=== PATIENT | female | born 1995 | race Two or more races ===

== ENCOUNTER 2024-06-09 08:45 | Emergency (ER) | payer MEDICAID, SELFPAY ==
[2024-06-09] VITALS (7 sets, daily range): BP systolic 101–110; BP diastolic 67–74; PULSE 79–117; RESP 16–98; TEMP 36.9–38.7; O2SAT 95–99; BMI 27.8
--- NOTE | 2024-06-09 09:06 | XR_ITS ---
Examination: CT abdomen and pelvis without contrast. Coronal 3-D reconstructions. Sagittal 2-D reconstructions. Date and time of exam:June 09, 2024 at 1032 hours INDICATIONS: Generalized abdominal pain nausea vomiting diarrhea beginning today CTDI: vol (mGy): 6.89 DLP: (mGycm): 336 Technique: Axial images of the abdomen have been obtained, 3 mm slice thickness Intravenous contrast material has not been administered. Low dose protocols were performed. One or more of the following dose reduction techniques were used; automated exposure control, adjustment of the mA and/or KV according to patient size, use of iterative reconstruction technique. Findings: Hepatomegaly 19 cm Diffuse fatty infiltration throughout the liver Mildly distended gallbladder no gallstones gallbladder wall does not appear thickened Spleen is not enlarged No pancreatic mass or peripancreatic edema Normal adrenal glands No renal or ureteral calculi, no hydronephrosis 19 mm umbilical hernia Aorta normal size Appendix is fluid-filled but without periappendiceal inflammatory change No pericecal inflammatory change No bowel obstruction Anteverted uterus Urinary bladder intact L5-S1 5 mm central lumbar disc bulge contiguous with the S1 nerve roots, axial image 123 IMPRESSION: Hepatomegaly, 19 cm Mildly distended gallbladder, no gallstones, consider gallbladder sonography follow-up No renal or ureteral calculi, no hydronephrosis Appendix is fluid-filled but without periappendiceal inflammatory change, no pericecal inflammatory change No bowel obstruction or diverticulitis L5-S1 5 mm central lumbar disc bulge
--- NOTE | 2024-06-09 09:06 | PD.EDRME ---
Rapid Medical Screening Exam RME Arrival date/time: 06/09/24 08:45 29-year-old female presents to the emergency department complaints of abdominal pain nausea and vomiting Chief Complaint: Abdominal Pain Time Seen by Provider: 06/09/24 08:55 Vital signs: Vital Signs Temperature 99.0 F 06/09/24 08:53 Pulse Rate 117 H 06/09/24 08:53 Respiratory Rate 19 06/09/24 08:53 Blood Pressure 108/74 06/09/24 08:53 Pulse Oximetry (%) 95 06/09/24 08:53 Oxygen Delivery Method Room Air 06/09/24 08:53
[2024-06-09 09:34] LABS: Collection Type, Urine Clean Catch
[2024-06-09 09:48] LABS: HCG Qualitative,Urine Negative
[2024-06-09 09:52] LABS: Basophils % (Auto) 0 % (0-2.5); Eosinophils % (Auto) 0 % (0-10); Hematocrit 38.1 % (36.0-46.0); Immature Granulocytes % (Auto) 1 % (0-0); Immature Granulocytes Auto 0.12 Thou/mm3 (0.00-0.00); Lymphocytes # (Auto) 1.1 Thou/mm3 (1.0-4.8); Lymphocytes % (Auto) 5 % (10-50); Mean Corpuscular HGB Conc 34.1 g/dl (31.0-37.0); Mean Corpuscular Volume 91 fL (80-100); Monocytes # (Auto) 0.6 Thou/mm3 (0.0-0.8); Monocytes % (Auto) 3 % (0-12); Neutrophils # (Auto) 20.4 Thou/mm3 (1.8-7.7); Neutrophils % (Auto) 92 % (37-80); Nucleated Red Blood Cell % 0 /100 WBC (0); Platelet Count 302 Thou/mm3 (140-440); RDW Standard Deviation 42.7 fL (36.4-46.3); Red Blood Count 4.19 Miln/mm3 (4.00-5.20); White Blood Count 22.3 Thou/mm3 (3.6-11.0)
[2024-06-09 10:02] LABS: Amphetamine/Methamp Scrn,U Negative (Negative); Barbiturate Screen,Urine Negative (Negative); Benzodiazepines Screen,Urine Negative (Negative); Benzoylecgonine Screen, Ur Negative (Negative); Fentanyl Screen,Urine Negative (Negative); Opiate Screen,Urine Negative (Negative); THC Screen,Urine Positive (Negative)
[2024-06-09 10:12] LABS: Bilirubin,Urine Negative (Negative); Blood,Urine Trace (Negative); Clarity,Urine Turbid (Clear/Hazy); Color,Urine Yellow (Lt Yel-Yel); Glucose, Urine Trace (Negative); Ketones,Urine Negative (Negative); Leukocyte Esterase,Urine Positive (Negative); Nitrite,Urine Negative (Negative); Protein,Urine 1+ (Neg - Trace); RBC,Urine 3 /hpf (0-3); Specific Gravity,Urine 1.026 (1.001-1.035); Squamous Epithelial Cell,Urine 4 /hpf (0-5); Urobilinogen,Urine Negative mg/dL (0.0-1.0); WBC,Urine 56 /hpf (0-5)
[2024-06-09 10:13] LABS: Culture Indicated,Urine Yes
[2024-06-09 10:16] LABS: Alanine Aminotransferase 23 U/L (10-49); Albumin, Serum 5.1 gm/dL (3.5-5.0); Albumin/Globulin Ratio 1.7 (1.2-2.2); Alkaline Phosphatase 67 U/L (46-116); Anion Gap 7 (7-16); Aspartate Amino Transferase 13 U/L (0-34); BUN/Creatinine Ratio 12 Ratio (12-20); Bilirubin,Total 1.6 mg/dL (0.3-1.2); Blood Urea Nitrogen 7 mg/dL (9-23); Calcium 10.1 mg/dL (8.3-10.6); Calcium (Corrected) 10.1 mg/dL (8.5-10.1); Carbon Dioxide 25.8 mMol/L (20.0-31.0); Chloride 102 mMol/L (98-107); Creatinine (Component) 0.6 mg/dL (0.6-1.3); Estimated Creatinine Clearance 112.3 mL/min (>60); Glucose 120 mg/dL (74-106); Lipase 27 U/L (12-53); Osmolality,Calculated 269 (275-295); Potassium 3.5 mMol/L (3.4-5.1); Sodium 135 mMol/L (136-145); Total Protein 8.1 gm/dL (5.7-8.2); eGFR > 60 See Note
[2024-06-09] MEDS: METOCLOPRAMIDE INJ 5 MG/ML VIAL 2 ML 10 MG IM (10:47)
--- NOTE | 2024-06-09 12:43 | XR_ITS ---
Examination: Abdomen sonogram, Limited Date and time of exam: June 09, 2024 1355 hrs. Indications: Upper abdominal pain and nausea beginning 2 days ago Technique: Real time grayscale sonographic images upright abdomen Findings: Normal gallbladder Normal common bile duct 0.3 cm Pancreatic head 2.4 cm Liver 18 cm no liver lesions Normal hepatopedal portal venous flow Patent IVC Impression: Normal gallbladder Mild hepatomegaly
--- NOTE | 2024-06-09 12:45 | EKG_ITS ---
[facility] Test Date: 2024-06-09 Pat Name: RM BERNAL Department: Room: - Gender: Female [employer] Director: : 1995 Requested By: Jayesh Amos Order Number: [id number] Reading MD: Jayesh Amos Measurements Intervals [place] Rate: 103 P: 43 CA: 166 QRS: 39 QRSD: 81 T: 19 QT: 343 QTc: 451 Interpretive Statements SINUS TACHYCARDIA POSSIBLE LEFT ATRIAL ENLARGEMENT [-0.1mV P WAVE IN V1/V2] NONSPECIFIC T-WAVE ABNORMALITY ABNORMAL RHYTHM ECG No previous ECG available for comparison /[id number]/[email or web address]/[id number].pdf
--- NOTE | 2024-06-09 12:46 | XR_ITS ---
Examination: AP chest single view Technique: AP portable sitting chest single view Exam date and time: June 09, 2024 1252 hrs. Indications: Sepsis protocol today. Findings: Normal heart size Lungs are clear. The osseous structures are intact Impression: No active disease
--- NOTE | 2024-06-09 12:49 | EDNOTE_ITS ---
ED General RME/HPI General Chief complaint: Abdominal Pain Stated complaint: abd. pain with vomiting since last night Time Seen by Provider: 06/09/24 08:55 Arrival date/time: 06/09/24 08:45 CC: Nausea vomiting abdominal pain HPI ongoing since last night no prior history of similar events denies any painful urination states her pain is quite tender throughout the lower abdomen. Last episode of vomiting and diarrhea this morning, localized abdominal pain is an 8 on a 10 scale radiates throughout the entire abdomen patient states when she sits upright it radiates up into the chest. Currently the pain is a 6 to an 8 on a 10 scale. Patient is warm to touch. RME / HPI RME / HPI narrative: 06/09/24 08:45 29-year-old female presents to the emergency department complaints of abdominal pain nausea and vomiting Related Data Home Medications ?Medication ?Instructions ?Recorded ?Confirmed vitamins-iron fumarate 27 1 tab PO QDAY 10/20/19 10/20/19 mg iron-folic acid 0.8 mg tablet ( Vitamin) Previous Rx's ?Medication ?Instructions ?Recorded ferrous sulfate 325 mg (65 mg 325 mg PO BID #60 tabs 10/22/19 iron) tablet,delayed release ciprofloxacin HCl 500 mg tablet 500 mg PO BID #14 tabs 06/09/24 (Cipro) meloxicam 7.5 mg tablet 7.5 mg PO QDAY #10 tabs 06/09/24 Allergies Allergy/AdvReac Type Severity Reaction Status Date / Time No Known Allergies Allergy Verified 06/09/24 08:48 Review of Systems Review of Systems Narrative Review of Systems: GEN: No fever, no chills, no weight loss EYES: No discharge, no visual changes, no pain HEENT: No ear pain, no congestion, no sore throat PULM: No shortness of breath, no cough, no congestion CV: No chest pain, no dyspnea on exertion, no palpitations GI: + nausea, + vomiting, + diarrhea, + pain, no constipation : No frequency, no urgency, no dysuria MUSC/SKEL: No joint pain, no back pain SKIN: No rash PSYCH: No hallucinations, no depression HEME/LYMPH: No easy bleeding or bruising tendencies NEURO: No weakness, no headache ED Exam Narrative Physical exam: [General: In moderate discomfort but not in any acute distress Head normocephalic HEENT: Within acceptable limits Neck is supple nontender Chest equal chest rise nontender to palpation Respiratory: Clear to auscultation no wheezes crackles or rubs CV: Rate rhythm is regular no murmurs rubs or clicks Abdomen diffusely tender in the right upper or right lower quadrants of the abdomen with reflexive guarding no rebound tenderness there is mild pain in the left lower quadrant with palpation. Back: No CVA tenderness no spinous process tenderness from cervical spine thoracic and lumbar spine Skin: Intact no petechiae rash induration ulceration or crepitus Extremities: Moving all extremity against resistance cap refill less than 2 seconds neurosensory intact Neuro: Awake alert oriented x3 Glascow coma 15 no focal deficits] Course Course Course Narrative: Vital signs were updated at 1251 at which time the patient was noted to have a temperature greater than 101 sepsis protocol was initiated. Quality Measures none Orders Category Date Time Status Bedside COVID-19 Antigen Test NOW Care 06/09/24 12:47 Active Bedside Influenza A&B Antigen Test NOW Care 06/09/24 12:47 Completed Business Services Associate STAT Care 06/09/24 12:45 Active Continuous Pulse Oximetry STAT Care 06/09/24 12:45 Completed EKG (ED ONLY) *Do not use* NOW Care 06/09/24 12:45 Completed Insert IV NOW Care 06/09/24 12:45 Active NPO STAT Care 06/09/24 12:45 Active Saline [Insert IV] NOW Care 06/09/24 12:47 Active Strict Intake and Output Routine Care 06/09/24 12:[address] abdomen pelvis wo con Stat Exams 06/09/24 09:06 Completed EKG (ED Only) Stat Exams 06/09/24 12:45 Draft US gall bladder Stat Exams 06/09/24 12:43 Completed XR chest 1V Stat Exams 06/09/24 12:46 Completed B-Type Natriuretic Peptide Stat Lab 06/09/24 13:14 Completed Blood Culture (Lab) Stat Lab 06/09/24 13:09 Received CBC Stat Lab 06/09/24 09:29 Completed CBC Stat Lab 06/09/24 13:14 Completed Comprehensive Metabolic Panel Stat Lab 06/09/24 09:29 Completed Drug Screen,Urine Stat Lab 06/09/24 09:20 Completed HCG Qualitative,Urine Stat Lab 06/09/24 09:20 Completed LDH (Lactate Dehydrogenase) Stat Lab 06/09/24 13:14 Completed Lactate (Lactic Acid) Stat Lab 06/09/24 13:14 Completed Lipase Stat Lab 06/09/24 09:29 Completed Magnesium Stat Lab 06/09/24 13:14 Completed Partial Thromboplastin Time Stat Lab 06/09/24 13:14 Completed Phosphorous Stat Lab 06/09/24 13:14 Completed Procalcitonin Stat Lab 06/09/24 13:14 Completed Prothrombin Time with INR Stat Lab 06/09/24 13:14 Completed Troponin I Stat Lab 06/09/24 13:14 Completed UA, C/S IF [Urinalysis, C/S if Indicated] Stat Lab 06/09/24 09:20 Completed Urinalysis Stat Lab 06/09/24 12:45 Ordered Urine Culture Stat Lab 06/09/24 09:20 Received Acetaminophen Tab [Tylenol Tab] Med 06/09/24 12:46 Discontinued 650 mg PO X1 ONE Metoclopramide Inj [Reglan Inj] Med 06/09/24 09:06 Discontinued 10 mg IM X1 ONE Morphine Inj Med 06/09/24 13:35 Discontinued 4 mg IVP X1 ONE Ondansetron Inj [Zofran Inj] Med 06/09/24 13:35 Discontinued 4 mg IV X1 ONE Sodium Chloride 0.9% 1000 ml [Ns] 1,000 ml Med 06/09/24 12:47 Discontinued IV 999 mls/hr Oxygen Delivery NOW RT 06/09/24 12:45 Active Vital Signs Vital signs: Vital Signs Temperature 99.0 F 06/09/24 08:53 Pulse Rate 117 H 06/09/24 08:53 Respiratory Rate 19 06/09/24 08:53 Blood Pressure 108/74 06/09/24 08:53 Pulse Oximetry (%) 95 06/09/24 08:53 Oxygen Delivery Method Room Air 06/09/24 08:53 [facility] Patient data External records reviewed:: [facility] previous records Clinical information provided by:: patient Social determinants that could affect healthcare access:: none Patient has the following chronic illnesses:: None How is presenting disease/condition affected by chronic disease/condition?: u neffected by Evaluation data The following diagnostics were reviewed and interpreted by me:: lab results, radiology exam(s) and EKG tracing(s) Lab and/or radiology exams considered but not ordered:: CBC shows leukocytosis 22,000 no bandemia no anemia thrombocytopenia CMP shows a sodium of 135 potassium 3.5 chloride of 102 CO2 of 25.8 BUN of 7 creatinine 0.6 glucose of 120 no transaminitis but a T. bili is elevated at 1.6. Urine leukocyte esterase positive WBCs at 56 but no bacteria UDS is negative. CT is read by radiology shows the patient has an enlarged gallbladder, and enlarged appendix but is not calling them directly cholecystitis or appendicitis. No other acute finding requires emergent or immediate intervention. Interpretation Summary: Patient has no acute finding requires emergent or immediate intervention, patient was seen by Dr. Amaya who feels there is not an appendicitis nature. Patient be discharged home. Medications Medications considered but not ordered:: None Medication administrations:: Medication Administration History Discontinued Medications Acetaminophen (Acetaminophen 325 Mg Tablet) 650 mg PO X1 ONE Stop: 06/09/24 12:47 Last Admin: 06/09/24 13:24 Dose: 650 mg Documented By: MILIND Sodium Chloride (Ns) 1,000 mls @ 999 mls/hr IV .Q1H1M ONE Stop: 06/09/24 13:47 Last Infusion: 06/09/24 15:04 Dose: Infused Documented By: Admin: 06/09/24 13:24 Dose: 999 mls/hr Documented By: MILIND Metoclopramide HCl (Metoclopramide Inj 5 Mg/Ml Vial 2 Ml) 10 mg IM X1 ONE; Protocol Stop: 06/09/24 09:07 Last Admin: 06/09/24 10:47 Dose: 10 mg Documented By: GUILLE Morphine Sulfate (Morphine Sulf Inj 10 Mg/Ml Vial) 4 mg IVP X1 ONE Stop: 06/09/24 13:36 Last Admin: 06/09/24 13:55 Dose: 4 mg Documented By: MILIND Ondansetron HCl (Ondansetron Inj 2 Mg/Ml Inj 2 Ml) 4 mg IV X1 ONE; Protocol Stop: 06/09/24 13:36 Last Admin: 06/09/24 13:57 Dose: 4 mg Documented By: MILIND None Consultations Consultation(s) initiated? (list below): Yes Consultation #1 (Physician, Specialty, Details): Jose Luis Time: 16:33 Diagnosis Differential Diagnosis ED Complaint MDM: UTI pyelonephritis appendicitis cholecystitis Most likely diagnosis given after review of the tests above:: Abdominal pain Admission Indicated Admission indicated?: not indicated Explain why admission is indicated or not indicated:: Stable for outpatient follow-up Admission Request Was there a request for admission?: No Disposition Plan Disposition Plan: Discharge Discharge Attestation Discharge Attestation: The patient and all family members were given an opportunity to ask questions and understood the discharge instructions. Discharge instructions specifically effects, indications for sooner follow up or return to the emergency department, and the expected course of current diagnosis. Patient condition: Stable Medical Decision Making Differential Diagnosis Differential Diagnosis: UTI pyelonephritis appendicitis cholecystitis Lab Data 06/09/24 13:14 06/09/24 09:29 Labs: Lab Results 06/09/24 06/09/24 06/09/24 Range/Units 09:20 09:29 13:14 WBC 22.3 H 20.7 H (3.6-11.0) Thou/mm3 RBC 4.19 4.14 (4.00-5.20) Miln/mm3 Hgb 13.0 12.7 (12.0-16.0) g/dL Hct 38.1 37.1 (36.0-46.0) % MCV 91 90 (80-100) fL MCH 31.0 30.7 (25.0-35.0) pg MCHC 34.1 34.2 (31.0-37.0) g/dl RDW Std Deviation 42.7 41.8 (36.4-46.3) fL Plt Count 302 299 (140-440) Thou/mm3 Neut % (Auto) 92 H 90 H (37-80) % Lymph % (Auto) 5 L 6 L (10-50) % [place] % (Auto) 3 3 (0-12) % Eos % (Auto) 0 0 (0-10) % Baso % (Auto) 0 0 (0-2.5) % Neut # (Auto) 20.4 H 18.6 H (1.8-7.7) Thou/mm3 Lymph # (Auto) 1.1 1.3 (1.0-4.8) Thou/mm3 [place] # (Auto) 0.6 0.6 (0.0-0.8) Thou/mm3 Eos # (Auto) 0.0 0.0 (0.0-0.5) Thou/mm3 Baso # (Auto) 0.0 0.0 (0.0-0.2) Thou/mm3 Immature Gran # (Auto) 0.12 H 0.13 H (0.00-0.00) Thou/mm3 Absolute Nucleated RBC 0.00 0.00 (0.00-0.00) Thou/mm3 Immature Gran % 1 H 1 H (0-0) % Nucleated RBC % 0 0 (0) /100 WBC PT 12.4 H (9.0-12.2) Seconds INR 1.1 (0.9-1.3) APTT 33.8 (22.0-36.0) Seconds Sodium 135 L (136-145) mMol/L Potassium 3.5 (3.4-5.1) mMol/L Chloride 102 (98-107) mMol/L Carbon Dioxide 25.8 (20.0-31.0) mMol/L Anion Gap 7 (7-16) BUN 7 L (9-23) mg/dL Creatinine 0.6 (0.6-1.3) mg/dL Estim Creat Clear Calc 112.3 (>60) mL/min eGFR > 60 (60 - ) See Note BUN/Creatinine Ratio 12 (12-20) Ratio Glucose 120 H (74-106) mg/dL Calculated Osmolality 269 L (275-295) Lactic Acid 0.7 (0.4-2.0) mMol/L Calcium 10.1 (8.3-10.6) mg/dL Corrected Calcium 10.1 (8.5-10.1) mg/dL Phosphorus 2.8 (2.4-5.1) mg/dL Magnesium 1.8 (1.6-2.6) mg/dL Total Bilirubin 1.6 H (0.3-1.2) mg/dL AST 13 (0-34) U/L ALT 23 (10-49) U/L Alkaline Phosphatase 67 (46-116) U/L Lactate Dehydrogenase 167 (120-246) U/L Troponin I < 0.002 (0.0-0.045) ng/mL B-Natriuretic Peptide 37 (0-100) pg/mL Total Protein 8.1 (5.7-8.2) gm/dL Albumin 5.1 H (3.5-5.0) gm/dL Globulin 3.0 (2.3-3.5) gm/dL Albumin/Globulin Ratio 1.7 (1.2-2.2) Lipase 27 (12-53) U/L Procalcitonin 0.31 (0.0-0.49) ng/ml Ur Collection Type Clean Catch Urine Color Yellow (Lt Yel-Yel) Urine Clarity Turbid A (Clear/Hazy) Urine pH 7.0 (5.0-7.0) Ur Specific [employer] 1.026 (1.001-1.035) Urine Protein 1+ A (Neg - Trace) Urine Glucose (UA) Trace (Negative) Urine Ketones Negative (Negative) Urine Blood Trace (Negative) Urine Nitrite Negative (Negative) Urine Bilirubin Negative (Negative) Urine Urobilinogen (Auto) Negative (0.0-1.0) mg/dL Ur Leukocyte Esterase Positive (Negative) Urine RBC 3 (0-3) /hpf Urine WBC 56 H (0-5) /hpf Ur Squamous Epith Cells 4 (0-5) /hpf Urine Bacteria None (None) Ur Culture Indicated? Yes Urine HCG, Qual Negative Urine Opiates Screen Negative (Negative) Urine Fentanyl Screen Negative (Negative) Ur Barbiturates Screen Negative (Negative) U Amphetamin/Meth Scrn Negative (Negative) U Benzodiazepines Scrn Negative (Negative) U Cocaine Metab Screen Negative (Negative) U Marijuana (THC) Screen Positive A (Negative) Discharge Plan Plan Patient Disposition: HOME (Self Care) Patient condition on transfer: Stable Prescriptions/Referrals Prescriptions/Med Rec: New ciprofloxacin HCl [Cipro] 500 mg tablet 500 mg PO BID Qty: 14 0RF meloxicam 7.5 mg tablet 7.5 mg PO QDAY Qty: 10 0RF No Action Vitamin 27 mg iron- 0.8 mg Tablet 1 tab PO QDAY ferrous sulfate 325 mg (65 mg iron) tablet,delayed release (DR/EC) 325 mg PO BID Qty: 60 1RF Referrals: Burak Leary MD [Primary Care Provider] - In 1 week Problem List Clinical Impression: Abdominal pain, UTI (urinary tract infection) Patient/Caregiver Discharge Instructions Education Materials: Abdominal Pain, ED CYSTITIS Female Adult Additional Instructions: Take the medications as prescribed there is worsening of symptoms in spite of medications return the emergency room immediately for further evaluation. Print Language: Bhutanese Stand Alone Forms: Amberly Award Info., Patient Portal Info Letter, Work/School Release PA/AQUATIC ECOLOGIST Supervising Physician PA/AQUATIC ECOLOGIST Supervising Physician: Jayesh Gutierres ENP
[2024-06-09 13:22] LABS: Lactate (Lactic Acid) 0.7 mMol/L (0.4-2.0)
[2024-06-09] MEDS: SODIUM CHLORIDE 0.9% 1000 ML 1,000 ML 999 ML IV (13:24)
[2024-06-09] MEDS: ACETAMINOPHEN 325 MG TABLET 650 MG PO (13:24)
[2024-06-09 13:27] LABS: Basophils % (Auto) 0 % (0-2.5); Eosinophils % (Auto) 0 % (0-10); Hematocrit 37.1 % (36.0-46.0); Hemoglobin 12.7 g/dL (12.0-16.0); Immature Granulocytes % (Auto) 1 % (0-0); Immature Granulocytes Auto 0.13 Thou/mm3 (0.00-0.00); Lymphocytes # (Auto) 1.3 Thou/mm3 (1.0-4.8); Lymphocytes % (Auto) 6 % (10-50); Mean Corpuscular HGB Conc 34.2 g/dl (31.0-37.0); Mean Corpuscular Hemoglobin 30.7 pg (25.0-35.0); Mean Corpuscular Volume 90 fL (80-100); Monocytes # (Auto) 0.6 Thou/mm3 (0.0-0.8); Monocytes % (Auto) 3 % (0-12); Neutrophils # (Auto) 18.6 Thou/mm3 (1.8-7.7); Neutrophils % (Auto) 90 % (37-80); Nucleated Red Blood Cell % 0 /100 WBC (0); Platelet Count 299 Thou/mm3 (140-440); RDW Standard Deviation 41.8 fL (36.4-46.3); Red Blood Count 4.14 Miln/mm3 (4.00-5.20); White Blood Count 20.7 Thou/mm3 (3.6-11.0)
[2024-06-09 13:43] LABS: B-Type Natriuretic Peptide 37 pg/mL (0-100)
[2024-06-09 13:48] LABS: INR 1.1 (0.9-1.3); Partial Thromboplastin Time 33.8 Seconds (22.0-36.0); Prothrombin Time 12.4 Seconds (9.0-12.2)
[2024-06-09 13:52] LABS: LDH (Lactate Dehydrogenase) 167 U/L (120-246); Magnesium 1.8 mg/dL (1.6-2.6); Phosphorous 2.8 mg/dL (2.4-5.1); Procalcitonin 0.31 ng/ml (0.0-0.49); Troponin I < 0.002 ng/mL (0.0-0.045)
[2024-06-09] MEDS: MORPHINE SULF INJ 10 MG/ML VIAL 4 MG IVP (13:55)
[2024-06-09] MEDS: ONDANSETRON INJ 2 MG/ML INJ 2 ML 4 MG IV (13:57)
== END 2024-06-09 16:45 | disposition home or self-care (01) ==
PROVIDERS: Nurse Practitioner Primary Care; Registered Nurse General Practice; Emergency Provider Emergency Medicine; PCP Family Medicine
DX: N39.0 Urinary tract infection, site not specified (principal); K82.8 Other specified diseases of gallbladder; K38.8 Other specified diseases of appendix; R00.0 Tachycardia, unspecified
CPT/HCPCS: 36415; 71045; 74176; 76705; 80053; 80307; 81001; 81025; 83605; 83615; 83690; 83735; 83880; 84100; 84145; 84484; 85025; 85610; 85730; 87040; 87086; 87400; 87811; 93005; 96361; 96372; 96374; 96375; 99285; J2270; J2405; J2765; J7030; A9270